=== PATIENT | female | born 1955 | race Caucasian/White ===

== ENCOUNTER → 2017-04-05 | Outpatient (CLI) | payer BC ==
--- NOTE | 2017-04-05 16:49 | RADIOLOGY REPORT PS360 ---
FACIAL BONES 3 VIEWS HISTORY: Facial pain, contusion, abrasion following injury FACIAL INJURY,FALL ORDERING PHYSICIAN: Darling CRAFT PATIENT AGE: 61 years COMPARISON: None FINDINGS: No fracture or air-fluid level within the sinuses. No significant mucosal thickening of the sinuses. No abnormal radio opaque foreign body. IMPRESSION: Negative facial bones. If symptoms persist, consider CT scan for further evaluation
== END ==
LOC: RAD 14:58
DX: S09.93XA Unspecified injury of face, initial encounter (principal); S01.81XA Laceration without foreign body of other part of head, initial encounter